=== PATIENT | male | born 1955 | race Caucasian/White ===

== ENCOUNTER 2018-11-12 13:28 | Emergency (ER) | payer MEDICARE, OTHER, SELFPAY ==
[2018-11-12 13:30] VITALS: BP 151/86; PULSE 97; RESP 16; TEMP 36.4; O2SAT 96; BMI 21.7
--- NOTE | 2018-11-12 13:55 | ED.VISSUMM ---
- ER Visit Summary Date of Service: 11/12/18 Chief Complaint: [] Right lateral leg pain after fall History of Present Illness: The patient is a 63 M [] ports inadvertently stumbled falling landing on the right lateral leg he was able to get up indicates having pain to the right lateral leg and some contusion and some bruising laterally he is having no difficulty walking no numbness 6 paresthesias no bony pain no hip knee ankle or foot pain history of DVT PE no chest pain shortness of breath no other complaints indicates it was just an advertent fall Physical Examination: [] Test Results: [] Signs are within normal range General, no distress resting comfortably HEENT is generally unremarkable The neck is supple no adenopathy Cardiovascular, regular rate and rhythm Lungs, clear bilateral Abdomen, soft nontender Extremities, he does have contusion to the right lateral leg into the right lateral foot there is no warmth swelling or area of any signs of infection he has minimal contusion to the right medial leg as well tib-fib compartment the compartments soft his hip knee and ankle are unremarkable palpation of all bony prominences are normal he is able to stand and walk and has no pain except in the right lateral muscular area Neurologic, awake alert answering questions appropriately moving all 4 extremities Emergency Department Course and Treatment: [] Explained to the patient we could obtain an x-ray of the leg he deferred that he simply wanted something for the pain I further explained if things do not improve he might benefit from a duplex scan but there is no pain in the upper thigh compartment there is no pain medially or everything that he is complaining of is to the lateral side of the leg he does not wish to pursue that now he simply wants the pain management and to follow-up with his doctors for further management in addition I referred to Dr. Gilse orthopedics Treatment Plan: [] Disposition: [] Home stable Impression: [] Right lateral leg pain after fall This note was generated with [employer] dictation software. It may contain incorrect words, spelling, and punctuation that were not noted in review of the chart prior to signing ED Disposition - Plan for ED Patient: Referrals: Vianca Pearson DO [Primary Care Provider] -
--- NOTE | 2018-11-12 13:57 | ED.DEP ---
ED Disposition - Plan for ED Patient: Instructions: ED Contusion Lower Ext Referrals: Vianca Pearson DO [Primary Care Provider] - Piyush Giles DO [STAFF PHYSICIAN] -
--- NOTE | 2018-11-12 13:58 | ED.DEP ---
ED Disposition - Plan for ED Patient: Instructions: ED Contusion Lower Ext Prescriptions: Naproxen [Naprosyn] 500 mg PO BID PRN #20 tab Referrals: Vianca Pearson DO [Primary Care Provider] - Piyush Gilse DO [STAFF PHYSICIAN] -
[2018-11-12] MEDS: Naproxen 500 MG Tablet PO (14:24)
[2018-11-12 14:25] VITALS: RESP 16
== END 2018-11-12 14:29 | disposition home or self-care (01) ==
LOC: ED 14:13
PROVIDERS: Emergency Provider Emergency Medicine; Family Provider Family Medicine; PCP Family Medicine
DX: M79.604 Pain in right leg (principal); S80.11XA Contusion of right lower leg, initial encounter; W01.10XA Fall on same level from slipping, tripping and stumbling with subsequent striking against unspecified object, initial encounter; Y93.9 Activity, unspecified; Y92.9 Unspecified place or not applicable; Y99.9 Unspecified external cause status
CPT/HCPCS: 99283